=== PATIENT | female | born 1945 | race Caucasian/White ===

== ENCOUNTER 2020-10-31 17:44 | Emergency (ER) | payer MEDICARE ==
[~2020-10-31] VITALS: Ht 167.6 cm; Wt 81.6 kg
--- NOTE | 2020-10-31 17:48 | NUR ---
Placed in room 03 . Placed on product analyst, blood pressure machine and pulse oximeter. To gown for exam. Side rails up.
--- NOTE | 2020-10-31 17:58 | NUR ---
RECEIVED AND IN ROOM, C/O FALLS, RT KNEE PAIN AND SWELLING LT ARM HEMATOMA DENIES HEAD INJURY
[2020-10-31 17:59] VITALS: BP_SYST 138
--- NOTE | 2020-10-31 17:59 | NUR ---
DR NUNEZ IN TO ASSESS
[2020-10-31 19:09] LABS: ANION GAP 9 (5-15); CALCIUM 9.1 mg/dL (8.4-11.0); CHLORIDE 102 mmol/L (98-107); GLUCOSE 190 mg/dL (70-99); POTASSIUM 3.7 mmol/L (3.5-5.1); SODIUM SERUM 137 mmol/L (136-145); UREA NITROGEN, BLOOD 16 mg/dL (8-21)
[2020-10-31 19:20] LABS: BASOPHILS % (AUTO) 0.3 % (0.0-2.0); EOSINOPHILS # (AUTO) 0.1 K/uL (0.0-0.4); EOSINOPHILS % (AUTO) 1.4 % (0.0-4.0); HEMATOCRIT 35.7 % (36-48); HEMOGLOBIN 12.1 g/dL (12.0-16.0); LYMPHOCYTES # (AUTO) 2.1 K/uL (1.0-5.5); MEAN CORPUSCULAR HEMOGLOBIN 30 pg (27-31); MEAN CORPUSCULAR HGB CONC 34 % (32-36); MEAN CORPUSCULAR VOLUME 88 fL (79.0-98.0); MONOCYTES # (AUTO) 0.6 K/uL (0.0-1.0); MONOCYTES % (AUTO) 7.5 % (1.7-9.3); NEUTROPHILS # (AUTO) 4.8 K/uL (1.8-7.7); NEUTROPHILS % (AUTO) 62.8 % (40.0-70.0); PLATELET COUNT (AUTO) 293 K/uL (130-430); RED BLOOD CELL COUNT(AUTO) 4.08 MIL/uL (4.2-6.2); WHITE BLOOD COUNT (AUTO) 7.6 K/uL (4.8-10.8)
[2020-10-31 19:22] LABS: ALANINE AMINOTRANSFERASE 21 U/L (12-78); ALBUMIN 3.7 g/dL (3.4-4.8); ASPARTATE AMINOTRANSFERASE 13 U/L (10-37); TOTAL BILIRUBIN 0.3 mg/dL (0.0-1.0)
[2020-10-31 19:23] LABS: INR 0.9 (0.8-1.2); PROTHROMBIN TIME 9.8 SECS (9.5-12.5)
--- NOTE | 2020-10-31 19:23 | NUR ---
RECEIVED REPORT KRANTHI CAREY. PT BACK FROM CT. PORTABLE XRAY DONE AT BEDSIDE.
--- NOTE | 2020-10-31 21:04 | NUR ---
PT RESTING. AWAITING FOR CT RESULTS. VSS.
[2020-10-31] MEDS ORDERED: IBUP-1969 PO (21:16)
[2020-10-31] MEDS ORDERED: HYDR-3917 PO (21:16)
[2020-10-31] MEDS ORDERED: MORPHINE 4 MG INJ. 4 MG/ML VIAL IM ONE (21:30)
--- NOTE | 2020-10-31 21:32 | NUR ---
MEDICATION ADMINISTERED ORDERED.
--- NOTE | 2020-10-31 21:32 | NUR ---
RIGHT KNEE IMMOBILIZER PLACED. PULSES WNL. PT TOLERATED WELL.
[2020-10-31 22:20] VITALS: BP_SYST 138
--- NOTE | 2020-10-31 22:21 | NUR ---
Patient given written and verbal discharge instructions and verbalizes understanding. DR.LEE ANTA MANLEY discussed with patient the results and treatment provided. Patient in stable condition. ID arm band removed. Rx of NORCO, MOTRIN given. Patient educated on pain management and to follow up with PMD. Pain Scale 0/10. Opportunity for questions provided and answered. Medication side effect fact sheet provided.
== END 2020-10-31 22:20 | disposition home or self-care (01) ==
LOC: SED 17:44
DX: S82.001A Unspecified fracture of right patella, initial encounter for closed fracture (principal); M25.551 Pain in right hip; W18.39XA Other fall on same level, initial encounter; Y93.89 Activity, other specified; Y92.89 Other specified places as the place of occurrence of the external cause; Y99.8 Other external cause status
CPT/HCPCS: 29505; 36415; 70450; 71045; 72170; 73700; 76376; 80053; 81025; 82550; 83605; 84484; 85025; 85610; 85730; 93005; 96372; 99285; J2270

== ENCOUNTER 2021-09-12 17:07 | Emergency (ER) | payer MEDICARE, MEDICAID ==
[~2021-09-12] VITALS: Ht 157.5 cm; Wt 59.0 kg
[~2021-09-12 17:07] MED LIST: HYDR-3917 PO; IBUP-1969 PO
[2021-09-12 17:30] VITALS: BP_SYST 125
[2021-09-12] MEDS ORDERED: KETAMINE HCL 500 MG/10 ML VIAL IVP ONE (18:30)
[2021-09-12] MEDS ORDERED: HYDR-3917 PO (21:05)
[2021-09-12] MEDS ORDERED: IBUP-1969 PO (21:05)
[2021-09-12] MEDS ORDERED: ONDANSETRON 4 MG ODT TAB ONE (22:13)
[2021-09-12] MEDS ORDERED: ONDANSETRON 4 MG ODT TAB PO ONE (22:15)
== END 2021-09-12 22:18 | disposition home or self-care (01) ==
LOC: SED 17:07
DX: S52.531A Colles' fracture of right radius, initial encounter for closed fracture (principal); W01.0XXA Fall on same level from slipping, tripping and stumbling without subsequent striking against object, initial encounter; Z79.899 Other long term (current) drug therapy; Y93.89 Activity, other specified; Y92.89 Other specified places as the place of occurrence of the external cause; Y99.8 Other external cause status
CPT/HCPCS: 25605; 73110; 99152; 99285; 73100; Q0162